=== PATIENT | female | born 1935 | race Caucasian/White ===

== ENCOUNTER → 2017-08-04 | Day surgery (SDC) | payer MEDICARE, OTHER ==
[~2017-08-04] MED LIST: ASPI81TA50 PO; DRON400T PO; GLUC100018 PO; IV NORMAL SALINE 1,000ML 1,000 ML IV SCH; IV RINGERS SOLUTION,LACTATED 1,000 ML IV SCH; LEVO25TA4 PO; LIDOCAINE 1% PF 2 ML VIAL. ID PRN; LIDOCAINE 2% 20 ML VIAL. ONE; METO25TA4 PO; MULT1TAB52 PO; ONDANSETRON PF 4 MG/2 ML VIAL. IV PRN; PROPOFOL 10,000 MCG/ML (20ML) VIAL IV ONE; PROPOFOL 20 ML IV ONE; RALO60TA PO
[2017-08-04 08:48] VITALS: BP 105/55
== END ==
LOC: SURG 07:05
PROVIDERS: ATTEND Internal Medicine Gastroenterology
DX: K29.70 Gastritis, unspecified, without bleeding (principal); K44.9 Diaphragmatic hernia without obstruction or gangrene; I10 Essential (primary) hypertension; E03.9 Hypothyroidism, unspecified; Z95.0 Presence of cardiac pacemaker
CPT/HCPCS: 43239; J2704; 43235; J2001; J7030

== ENCOUNTER → 2018-03-24 | Outpatient (CLI) | payer MEDICARE, OTHER ==
[2017-08-04 08:48] VITALS: BP 105/55
[~2018-03-24] MED LIST changes: -IV NORMAL SALINE 1,000ML 1,000 ML IV SCH; -IV RINGERS SOLUTION,LACTATED 1,000 ML IV SCH; -LIDOCAINE 1% PF 2 ML VIAL. ID PRN; -LIDOCAINE 2% 20 ML VIAL. ONE; -ONDANSETRON PF 4 MG/2 ML VIAL. IV PRN; -PROPOFOL 10,000 MCG/ML (20ML) VIAL IV ONE; -PROPOFOL 20 ML IV ONE
--- NOTE | 2018-03-24 11:49 | RAD ---
CT HEAD WITHOUT CONTRAST 03/24/2018 11:15 AM Indication: FELL EARLIER THIS WEEK. CONCUSSION WITHOUT LOSS OF CONSCIOUSNESS Comparison: CT head without contrast September 10, 2015 Procedure: Multidetector CT imaging of the head was performed without the administration of contrast. Findings: No evidence of acute intracranial hemorrhage is identified. No evidence of subacute territorial infarct is seen. Age appropriate senescent atrophic changes are seen. Encephalomalacia involving the left frontal lobe and left basal ganglia with resultant prominence of the anterior horn of left lateral ventricle is seen.Findings are consistent with the expected evolution of the previously noted hemorrhagic stroke. Basilar cisterns remain patent. No acute mass effect or midline shift is seen. No new abnormal extra-axial fluid collections are identified. No acute osseous changes are seen. IMPRESSION: 1.No evidence of acute intracranial abnormality 2. Chronic changes as described above. CT DOSING PQRS STATEMENT: One or more of the following individualized dose reduction techniques were utilized for this examination: 1. Automated exposure control 2. Adjustment of the mA and/or kV according to patient size 3. Use of iterative reconstruction technique Electronically signed by: Rick Gu MD (03/24/2018 11:46 AM) [id number]
== END | disposition home or self-care (01) ==
LOC: CT 11:05
PROVIDERS: ATTEND Family Medicine
DX: S06.0X0A Concussion without loss of consciousness, initial encounter (principal); G93.89 Other specified disorders of brain; X58.XXXA Exposure to other specified factors, initial encounter; Y93.89 Activity, other specified; Y92.89 Other specified places as the place of occurrence of the external cause; Y99.8 Other external cause status
CPT/HCPCS: 70450

== ENCOUNTER → 2019-08-14 | Outpatient (CLI) | payer MEDICARE, OTHER ==
[2018-04-10 10:32] VITALS: BP 130/68
[~2019-08-14] MED LIST changes: +MULT-445 PO; -MULT1TAB52 PO
--- NOTE | 2019-08-14 19:02 | RAD ---
CT CHEST WO CONTRAST Indication: Abnormal weight loss, fatigue, abnormal chest x-ray Technique: Noncontrast CT imaging was performed of the chest, multiplanar reconstruction images submitted. One or more of the following individualized dose reduction techniques were utilized for this examination: 1. Automated exposure control 2. Adjustment of the mA and/or kV according to patient size 3. Use of iterative reconstruction technique. Comparison: September 01, [address] Findings: There is a thick-walled cavitary mass lesion of the posterior aspect of the right lower lobe abutting the pleural surface about 4.8 cm transverse by 2.7 cm greater AP by 5.7 cm CC. There is right lower lobe nodule about 0.7 cm along the major fissure image 56 series 2. There is trace pleural fluid bilaterally greater on the left. There is mediastinal lymphadenopathy, largest precarinal node about 1.2 cm tract is dimension. Poorly evaluated without intravenous contrast, there is probably a degree of right hilar lymphadenopathy. There is dual lead left electronic cardiac device at atrial appendage clip. There is emphysema with upper zone predominance. There is nonspecific heterogeneity of the bilateral breasts greater on the left. There has been vertebroplasty at L2. IMPRESSION: 1. There is thick walled cavitary mass lesion of the posterior aspect of the right lower lobe. While infectious etiologies including tuberculosis are in the differential considerations, primary concern would be for cavitary malignancy until proven otherwise. There is lymphadenopathy. 2. There is some heterogeneity of the bilateral breasts greater on the left, better evaluated by mammography and ultrasound if needed. 3. There is emphysema. Electronically signed by: Shane Weldon MD (08/14/2019 6:59 PM) [facility]
[2019-08-14 19:43] LABS: HEMATOCRIT 36.5 % (36.0-47.0); HEMOGLOBIN 11.6 g/dL (12.0-15.5); MEAN CORPUSCULAR HEMOGLOBIN 28 pg (25-35); MEAN CORPUSCULAR HGB CONC 32 g/dL (31-37); MEAN CORPUSCULAR VOLUME 87 fL (79-100); PLATELET COUNT 256 x10^3/uL (140-400); RED CELL DISTRIBUTION WIDTH 13.6 % (11.5-14.5); WHITE BLOOD COUNT 6.5 x10^3/uL (4.0-11.0)
[2019-08-14 19:47] LABS: ALBUMIN 2.8 g/dL (3.4-5.0); ALBUMIN/GLOBULIN RATIO 0.6 (1.0-1.7); CALCIUM 8.5 mg/dL (8.5-10.1); CREATININE 1.4 mg/dL (0.6-1.0); GFR 35.7; POTASSIUM 3.8 mmol/L (3.5-5.1); TOTAL BILIRUBIN 0.3 mg/dL (0.2-1.0); TOTAL PROTEIN 7.4 g/dL (6.4-8.2)
[2019-08-14 20:33] LABS: % BANDS 1 % (0-9); % EOS 6 % (0-5); % LYMPHS 20 % (24-48); % MONOS 11 % (0-10); % SEGS 62 % (35-66)
[2019-08-14 20:34] LABS: PLT ESTIMATE ADEQUATE (ADEQUATE)
[2019-08-15 13:21] LABS: FREE T4 1.31 ng/dL (0.76-1.46); THYROID STIM HORMONE (TSH) 5.517 uIU/mL (0.358-3.740)
== END ==
LOC: CT 18:15
PROVIDERS: ATTEND Family Medicine
DX: T73.3XXA Exhaustion due to excessive exertion, initial encounter (principal); R63.4 Abnormal weight loss; I50.21 Acute systolic (congestive) heart failure; E03.9 Hypothyroidism, unspecified; J00 Acute nasopharyngitis [common cold]; N39.0 Urinary tract infection, site not specified; R06.9 Unspecified abnormalities of breathing; J43.9 Emphysema, unspecified; R59.0 Localized enlarged lymph nodes; R91.1 Solitary pulmonary nodule; X50.9XXA Other and unspecified overexertion or strenuous movements or postures, initial encounter; Y93.89 Activity, other specified; Y92.89 Other specified places as the place of occurrence of the external cause; Y99.8 Other external cause status
CPT/HCPCS: 36415; 71250; 80053; 82550; 84439; 84443; 84484; 85007; 85025

== ENCOUNTER → 2019-08-29 | Outpatient (CLI) | payer MEDICARE, OTHER ==
[2018-04-10 10:32] VITALS: BP 130/68
--- NOTE | 2019-08-29 17:13 | RAD ---
EXAM: BILATERAL DIGITAL 3D SCREENING MAMMOGRAPHY. HISTORY: Routine mammographic screening. TECHNIQUE: Bilateral digital 3D and tomographic images were obtained in CC and MLO projections. Computer-aided detection was applied. COMPARISON: None available. This is interpreted as a baseline study. COMPOSITION: C. The breasts are heterogeneously dense, which may obscure small masses. FINDINGS: A region of architectural distortion superolaterally on the left is concerning for malignancy. A small region of branching calcifications is noted deep to the nipple on the CC view. Questionable architectural distortion is suspected superolaterally on the right. See annotations. BI-RADS CATEGORY 0: Incomplete--Needs Additional Imaging Evaluation. RECOMMENDATION: 1. Magnification images of the region surrounding the left architectural distortion and subareolar region. 2. Ultrasound of the left architectural distortion and axilla. 3. Spot compression and ultrasound of the suggested region of architectural distortion superolaterally on the right. See annotations. Electronically signed by: Chandrakant Palacios MD (08/29/2019 5:10 PM) [id number]
== END | disposition home or self-care (01) ==
LOC: MAMMO 11:16
PROVIDERS: ATTEND Family Medicine
DX: Z12.31 Encounter for screening mammogram for malignant neoplasm of breast (principal)
CPT/HCPCS: 77063; 77067

== ENCOUNTER → 2019-09-13 | Outpatient (CLI) | payer MEDICARE, OTHER ==
[2018-04-10 10:32] VITALS: BP 130/68
--- NOTE | 2019-09-17 09:51 | RAD ---
DATE: 09/13/2019 2:10 PM EXAM: DIGITAL DIAGNOSTIC BILATERAL, BREAST BILATERAL HISTORY: Screening recall for bilateral architectural distortion. COMPARISON: 08/29/2019 bilateral screening mammogram TECHNIQUE: A full-field lateral view of the left breast was obtained. Spot compression and magnification views of the right breast were obtained. FINDINGS: Breast Density: HETERO The breast parenchyma Is heterogeneously dense, which could reduce sensitivity of mammography. Breast parenchyma level C In the left breast, the additional full-field lateral view show the presence of a dense, spiculated 1.7 cm mass at the approximate 12:00 position 5 cm from the nipple that correlates with the finding recalled from screening. On mammography alone, it is highly suggestive of malignancy and needs biopsy but was pursued for targeted ultrasound in further characterization. Additional mammographic views of the left breast were not acquired given the lower likelihood of significantly impacting future clinical management. Partially imaged left pacemaker is incidentally noted. Targeted ultrasound of the left breast confirm the presence of an antiparallel irregular hypoechoic shadowing 1.5 cm mass at the left 12:00 position 4 cm from the nipple that correlates with the mammographic finding recalled from screening and confirmed on same-day diagnostic mammogram. No left axillary adenopathy by ultrasound. Vague hypoechoic tissue at the left 4:00 position 4 cm from the nipple with edge artifact was incidentally noted as well, possibly reflecting a ridge of dense fibrous tissue. In the right breast, the questioned area of architectural distortion did not clearly persist with additional mammographic views but given the density of her breast tissue, it was pursued with targeted right breast ultrasound after additional mammographic magnification views were obtained. Targeted ultrasound of the right breast did not reveal suspicious sonographic finding in the upper outer quadrant but at the right 12:00 position 3 cm from the nipple, an irregular hypoechoic 9 mm mass was identified that is sonographically suspicious. No right axillary adenopathy on ultrasound. IMPRESSION: 1. Spiculated 1.7 cm mass in the superior left breast (12:00 position 5 cm from the nipple) is highly suggestive of malignancy. Ultrasound-guided biopsy is recommended. Given the density of her breast tissue, if malignancy is diagnosed, additional imaging with MRI if clinically appropriate may be considered if it would help with clinical staging and management. 2. Irregular hypoechoic 1.5 cm mass at the right 12:00 position 3 cm from the nipple is suspicious for malignancy. Ultrasound-guided biopsy is recommended. BI-RADS CATEGORY: 5 HIGHLY SUGGESTIVE MALIGNANCY RECOMMENDED FOLLOW-UP: BIO BIOPSY RECOMMENDED Bilateral ultrasound-guided core needle breast biopsy is recommended. Technologist relayed this recommendation to the patient prior to discharge from the imaging suite. PQRS compliance statement: Patient information was entered into a reminder system with a target due date for the next mammogram. Mammography is a sensitive method for finding small breast cancers, but it does not detect them all and is not a substitute for careful clinical examination. A negative mammogram does not negate a clinically suspicious finding and should not result in delay in biopsying a clinically suspicious abnormality. "Our facility is accredited by the [employer] Mammography Program." Discussed with Dr. Medina by telephone at 9:12 am on 09/17/19.
== END | disposition home or self-care (01) ==
LOC: MAMMO 13:52
PROVIDERS: ATTEND Family Medicine
DX: R92.8 Other abnormal and inconclusive findings on diagnostic imaging of breast (principal); N63.22 Unspecified lump in the left breast, upper inner quadrant
CPT/HCPCS: 76641; 77066

== ENCOUNTER → 2019-12-19 | Outpatient (CLI) | payer MEDICARE, OTHER ==
[2018-04-10 10:32] VITALS: BP 130/68
== END ==
LOC: LAB 15:42
PROVIDERS: ATTEND Internal Medicine Interventional Cardiology
DX: R79.89 Other specified abnormal findings of blood chemistry (principal)
CPT/HCPCS: 36415; 84484

== ENCOUNTER → 2021-01-22 | Outpatient (CLI) | payer MEDICARE, OTHER ==
[2018-04-10 10:32] VITALS: BP 130/68
[~2021-01-22] MED LIST changes: -DRON400T PO; +DRON400T6 PO
--- NOTE | 2021-01-22 12:50 | RAD ---
CT THORACIC SPINE WO History: Back pain Comparison: CT chest 08/14/2019. Technique: Noncontrast CT of the thoracic spine. Findings: There are 12 rib-bearing thoracic vertebral segments. The T12 ribs are hypoplastic. Tiny C7 cervical ribs. Mild levoconvex curvature of the upper thoracic spine. No spondylolisthesis. There is subtle co mpression deformity of the T8 vertebral body which is new from August 2019 comparison with approximatel y 15 percent height loss. Redemonstrated L1 vertebral body compression fracture with kyphoplasty bach ges and retropulsion of the superior posterior cortex. mild thoracic degenerative endplate changes an d osteophytes. No significant thoracic spinal canal or neuroforaminal stenosis. Narrowing of the spin al canal at L1 due to fracture or retropulsion is unchanged. Partially visualized right internal jugular central venous catheter with tip terminating at the cavoa trial junction. Left chest dual-chamber cardiac pacemaker. Emphysematous changes of the lungs. There has been evolution of a thick-walled cavitary lesion in the right lower lobe now with posterior segme nt consolidation and decreased thickness of the cavitation wall. Prior metastatic adenopathy is impro michael. Impression: 1. Compression fracture of the T8 vertebral body new from August 2019 with approximately 50 percent he ight loss. 2. Evolution of cavitary lesion in the right lower lobe with new consolidation/atelectasis with volu me loss in the posterior segment and interval decrease in wall thickness of the cavitary lesion as we ll as improvement of the mediastinal adenopathy. ------ Exposure: One or more of the following individualized dose reduction techniques were utilized for thi s examination: 1. Automated exposure control 2. Adjustment of the mA and/or kV according to patient size 3. Use of iterative reconstruction technique. Electronically signed by: Juan Mari MD (01/22/2021 12:48 PM) [facility]
== END ==
LOC: RAD 10:49
PROVIDERS: ATTEND Family Medicine
DX: M48.54XA Collapsed vertebra, not elsewhere classified, thoracic region, initial encounter for fracture (principal); M43.8X4 Other specified deforming dorsopathies, thoracic region; R91.1 Solitary pulmonary nodule; M51.24 Other intervertebral disc displacement, thoracic region; J43.9 Emphysema, unspecified; M47.814 Spondylosis without myelopathy or radiculopathy, thoracic region; M48.56XD Collapsed vertebra, not elsewhere classified, lumbar region, subsequent encounter for fracture with routine healing; M25.78 Osteophyte, vertebrae
CPT/HCPCS: 72128

== ENCOUNTER → 2021-02-05 | Outpatient (CLI) | payer MEDICARE, OTHER ==
[2018-04-10 10:32] VITALS: BP 130/68
--- NOTE | 2021-02-05 14:57 | RAD ---
EXAM: Nuclear bone scan. HISTORY: Back pain. Lung cancer. TECHNIQUE: Following the intravenous injection of 25 mCi of Tc 99m labeled methylene diphosphonate (M DP), whole body imaging was performed. COMPARISON: CT dated 01/22/2021. FINDINGS: There is focal increased tracer tracer activity within the bilateral aspects of the T8 vert ebral body, consistent with a subacute compression fracture demonstrated on the recent CT. There is d egenerative radiotracer activity involving the lumbar spine, knees, shoulders and wrists. There is a small focus of increased radiotracer activity within the left mid cervical spine which is likely due to degenerative facet arthropathy.. IMPRESSION: 1. Focal increased radiotracer activity within the bilateral aspects of T8, consistent with a subacut e compression fracture demonstrated on the recent CT. 2. Degenerative activity involving the lumbar spine, knees, shoulders and wrists. 3. Suspected focus of degenerative radiotracer activity involving the left facet joints at the mid ce rvical levels. Electronically signed by: Kadie Daly MD (02/05/2021 2:54 PM) [id number]
== END ==
LOC: NM 10:28
PROVIDERS: ATTEND Family Medicine
DX: M48.54XA Collapsed vertebra, not elsewhere classified, thoracic region, initial encounter for fracture (principal); M48.56XA Collapsed vertebra, not elsewhere classified, lumbar region, initial encounter for fracture; M48.50XG Collapsed vertebra, not elsewhere classified, site unspecified, subsequent encounter for fracture with delayed healing; W01.0XXA Fall on same level from slipping, tripping and stumbling without subsequent striking against object, initial encounter; Z85.118 Personal history of other malignant neoplasm of bronchus and lung
CPT/HCPCS: 78306; A9503

== ENCOUNTER → 2021-02-09 | Outpatient (CLI) | payer MEDICARE, OTHER ==
[2018-04-10 10:32] VITALS: BP 130/68
--- NOTE | 2021-02-10 14:20 | RAD ---
CT THORACIC SPINE WO History:Reason: BACK PAIN RULE OUT FX / Spl. Instructions: / History: Technique: Noncontrast CT was performed of the thoracic spine. Multiplanar reconstructions were perfo rmed. Exposure: One or more of the following individualized dose reduction techniques were utilized for thi s examination: 1. Automated exposure control 2. Adjustment of the mA and/or kV according to patient size 3. Use of iterative reconstruction technique. Comparison: January 22, 2021 Findings: Thoracic spine: Unchanged consolidations and atelectasis within the right lung right lower lobe posterior cavitary le brandy. Small loculated right pleural effusion, unchanged. T8 compression fractures status post kyphoplasty. Overall height loss is increased compared to prior approximately 50 percent. Chronic L1 compression fractures status post kyphoplasty. No new compressio n fracture. Mild rightward curvature of the thoracic spine. Impression: 1. T8 compression fracture status post kyphoplasty. Interval height loss compared to prior. 2. Chronic L1 compression fracture status post kyphoplasty. 3. Unchanged right lung findings with consolidations and atelectasis and cavitary lesion. Electronically signed by: Deandre Darnell DO (02/10/2021 2:18 PM) [facility]
== END ==
LOC: CT 13:20
PROVIDERS: ATTEND Surgery
DX: J90 Pleural effusion, not elsewhere classified (principal); J98.11 Atelectasis; M43.8X4 Other specified deforming dorsopathies, thoracic region; Z98.890 Other specified postprocedural states
CPT/HCPCS: 72128

== ENCOUNTER 2021-03-12 04:57 | Emergency (ER) | payer MEDICARE, OTHER ==
[~2021-03-12] VITALS: Ht 175.3 cm; Wt 59.0 kg
[2021-03-12] MEDS ORDERED: IOHEXOL 300 MG/ML 75 ML VIAL. IV ONE (05:30)
[2021-03-12] MEDS ORDERED: IV RINGERS SOLUTION,LACTATED 1,000 ML IV ONE (05:30)
[2021-03-12] MEDS ORDERED: CONTRAST GIVEN. MC PRN (05:30)
--- NOTE | 2021-03-12 05:31 | PHYS DOC ---
Past History Past Medical History: CVA, Hypothyroid (CATIA COOL MD) Past Surgical History: No Surgical History (CATIA COOL MD) Alcohol Use: None Drug Use: None (CATIA COOL MD) Adult General Chief Complaint Chief Complaint: CONSTIPATION HPI HPI Patient is an 85-year-old female with a past medical history significant for bradycardia arrhythmia with pacemaker placed who presents to the emergency department with a chief complaint. States she had not had a bowel movement in 4 days. States he is got generalized abdominal pain and distention 6 out of 10, dull and achy in nature radiation. Denies any recent travel, traumas, illnesses, fevers, chest pain, shortness of breath nausea diarrhea, dysuria, hematuria or blood in the stool. Denies any numbness/weakness/tingling. States she has been eating and drinking normally for her. States she did have a fractured lumbar vertebra about 4 5 weeks ago and had injection bone cement to fix it. States that she also went and saw the pain management clinic at the request of her primary care physician Dr. Avalos who started her on hydrocodone. States that she ran out of those about 2 days ago. (CATIA COOL MD) Review of Systems Review of Systems Review of systems otherwise unremarkable except noted in HPI (CATIA COOL MD) Allergies Allergies Allergies Coded Allergies Type Severity Reaction Last Updated Verified No Known Drug Allergies 08/04/17 No (CATIA COOL MD) Physical Exam Physical Exam Constitutional: Well developed, well nourished, no acute distress, non-toxic appearance. [] HENT: Normocephalic, atraumatic, oropharynx dry, Eyes: conjunctiva normal, no discharge. [] Neck: Normal range of motion, no tenderness, supple, no stridor. [] Cardiovascular:Heart rate regular rhythm, no murmur, paced [] Lungs & Thorax: Bilateral breath sounds clear to auscultation [] Abdomen: Bowel sounds diminished, soft, generalized tenderness, some guarding and rebound no masses, no pulsatile masses. [] Skin: Warm, dry, no erythema, no rash. [] Back: no CVA tenderness. [] Extremities: No tenderness, no cyanosis, no clubbing, ROM intact, no edema. [] Neurologic: Alert and oriented X 3, normal motor function, normal sensory function, no focal deficits noted. [] Psychologic: Affect normal, judgement normal, mood normal. [] (CATIA COOL MD) EKG EKG [] (CATIA COOL MD) Radiology/Procedures Radiology/Procedures [] (CATIA COOL MD) Impressions: CT OF THE ABDOMEN AND PELVIS WITH IV CONTRAST. History: Reason: ab pain, distension, no BM 5 days, Comparison:None. Procedure: Contiguous axial images of the abdomen and pelvis were performed after the administration of 60 cc of Optiray 300 IV contrast. Oral contrast: No. Findings: There is patchy opacity in the right lung base medially. There is multiple dilated loops of proximal and mid small bowel and more collapsed distal small bowel with a transition zone seen anteriorly in left pelvis image #53. The appendix is not well seen. The gallbladder appears normal. Liver: Unremarkable Spleen: Unremarkable Pancreas: Unremarkable Adrenal Glands: Unremarkable Kidneys: Bilateral cysts There is no mass or lymphadenopathy. There is no free air. There is no free fluid. The urinary bladder contains a small amount of air but otherwise appears normal. There is an old L1 vertebral body compression fracture with previous vertebroplasty. Impression: 1. Right basilar infiltrate could be discoid atelectasis or early pneumonia. 2. Air in the urinary bladder is likely from instrumentation. There is also small focus of air in the endometrial uterus which could be iatrogenic. 3. Dilated small bowel with a transition zone suggesting partial small bowel obstruction. End Impression PQRS Compliance Statement: One or more of the following individualized dose reduction techniques were util ized for this examination: 1. Automated exposure control 2. Adjustment of the mA and/or kV according to patient size 3. Use of iterative reconstruction technique Electronically signed by: Johnny Dsouza III, MD (03/12/2021 7:15 AM) [facility] DICTATED AND SIGNED BY: JOHNNY DSOUZA III, MD DATE: 03/12/21 0707 CC: JOE CASANOVA DO; CATIA COOL MD; VINICIO NOGUEIRA MD ~MTH0 0 EXAM: CHEST ONE VIEW. HISTORY: Lung cancer, cardiac workup. COMPARISON: 08/09/2019. FINDINGS: A frontal view of the chest is obtained. A right-sided port catheter has its tip in the superior cavoatrial junction. A left-sided pacemaker has its leads in the right atrium and right ventricle. A cavitary lesion within the superior segment of the right lower lobe measures approximately 5.5 cm and is better seen on CT. Hyperinflation is consistent with chronic obstructive pulmonary disease. There is mild right volume loss. There is no pneumothorax or pleural effusion. The heart is not enlarged. There are a therosclerotic calcifications of the aorta. An atrial appendage closure clip and mid thoracic vertebroplasty changes are noted. IMPRESSION: 1. Refer to prior CT for description of a right-sided cavitary lesion. Ongoing follow-up is recommended. 2. Chronic obstructive pulmonary disease. Electronically signed by: Chandrakant Palacios MD (03/12/2021 6:49 AM) [id number] DICTATED AND SIGNED BY: MARY PALACIOS MD DATE: 03/12/21 0646 CC: JOE CASANOVA DO; CATIA COOL MD; VINICIO NOGUEIRA MD ~MTH0 0 CT ABDOMEN+PELVIS WO History: Pain improved, question partial small bowel obstruction resolution. Comparison: CT abdomen and pelvis 03/12/2021. Technique: Noncontrast CT of the abdomen and pelvis. Findings: Posterior right lower lobe bleb/pulmonary cyst with adjacent mild bronchiectasis. Dual chamber pacemaker leads. Atrial appendage clip seen on patient services technician view only. The liver is unremarkable. Layering density within the gallbladder, likely vicarious contrast excretion. The pancreas, spleen and adrenal glands are unremarkable. Mild renal cortical atrophy. Bilateral excretory nephrograms ureters are unremarkable. Bilateral renal cysts. The bladder is within normal limits. Uterus and adnexa are unremarkable. There are scattered foci of anterior dependent free air in the abdomen and pelvis. Trace pelvic free fluid. Mild mesenteric inflammation. The stomach is u nremarkable. Small bowel loops appear mildly distended, perhaps less conspicuous than comparison, possible transition point in the right upper pelvis (axial 78). There is a swirling appearance of the lower small bowel mesentery concerning for internal hernia or volvulus. Fluid within the ascending colon. No colonic wall thickening. Mild descending and sigmoid diverticulosis. Unopacified vasculature demonstrates atherosclerotic calcification. No adenopathy. Decreased osseous mineralization in the spine and pelvis. Multilevel degenerative changes. Kyphoplasty changes at L1. Impression: 1. Intraperitoneal free air concerning for perforation of small bowel. Swirled appearance of the mesenteric root and mildly dilated lower abdominal small bowel loops concerning for small bowel volvulus or internal hernia. Findings discussed with JOE CASANOVA DO at 03/12/2021 12:45 PM. FOR INTERNAL CODING PURPOSES RESULT CODE: (C) ------ Exposure: One or more of the following individualized dose reduction techniques were utilized for this examination: 1. Automated exposure control 2. Adjustment of the mA and/or kV according to patient size 3. Use of iterative reconstruction technique. Electronically signed by: Juan Harper MD (03/12/2021 12:47 PM) [id number] DICTATED AND SIGNED BY: JUAN HARPER MD DATE: 03/12/21 1232 CC: JOE CASANOVA DO; VINICIO NOGUEIRA MD ~MTH0 0 (JOE CASANOVA DO) Heart Score C/O Chest Pain: No Risk Factors: Risk Factors: DM, Current or recent (<one month) smoker, HTN, HLP, family history of CAD, obesity. Risk Scores: Risk Factors: DM, Current or recent (<one month) smoker, HTN, HLP, family h istory of CAD, obesity. (CATIA COOL MD) Course & Med Decision Making Course & Med Decision Making Patient is an 85-year-old female who presents with a chief complaint of abdominal pain and distention with no bowel movement for the last 4 to 5 days Vital signs not concerning. Physical exam noted above. Patient placed on the monitor with IV access established. Started IV fluid. Made NPO. Given pain medicine. Laboratory analysis and CT pending. Patient handed off to day team for continued evaluation, treatment and disposition. [] (CATIA COOL MD) Course & Med Decision Making The patient's chest x-ray shows a right basilar lesion. CT of the pelvis shows a partial small bowel obstruction as well as possible early pneumonia in the base of the right lung. See official reads for more details. Patient has a slight elevated white count with a left shift. C-reactive protein is high. Patient's urinalysis is suggestive of urinary tract infection. I will treat the patient with Rocephin and azithromycin. We will transfer the patient to a facility with surgical services for her partial small bowel obstruction. Patient preference is [facility]. There are no beds currently at [facility]. 1 patient is in the ED, she had a large bowel movement. This is encouraging. We will continue to observe her while we wait for bed availability. Unfortunately, the patient's repeat CT scan showed free air in the abdomen unlikely perforation. Continue to have obstruction. I spoke with the general surgeon, Dr. Cosme and he has recommended the patient be transferred. I spoke with Dr. Eason hospitalist who is accepted the patient for transfer. She will go by ambulance. (JOE CASANOVA DO) Dragon Disclaimer Dragon Disclaimer This electronic medical record was generated, in whole or in part, using a voice recognition dictation system. (CATIA COOL MD) Departure Departure: Impression: Primary Impression: Partial small bowel obstruction Additional Impressions: Abdominal pain Abdominal distention Constipation Fatigue UTI (urinary tract infection) Pneumonia Disposition: 02 SHORT TERM HOSPITAL Condition: STABLE Referrals: VINICIO NOGUEIRA MD (PCP) Problem Qualifiers Additional Impressions: Pneumonia Pneumonia type: due to unspecified organism Laterality: right Lung location: lower lobe of lung Qualified Codes: J18.9 - Pneumonia, unspecified organism CATIA COOL MD Mar 12, 2021 05:30 JOE CASANOVA DO Mar 12, 2021 07:23
[2021-03-12 06:11] LABS: BASO % 0 % (0-3); EOS # 0.1 x10^3/uL (0.0-0.7); EOS % 1 % (0-3); HEMOGLOBIN 13.5 g/dL (12.0-15.5); LYMPH # 1.2 x10^3/uL (1.0-4.8); LYMPH % 11 % (24-48); MEAN CORPUSCULAR HEMOGLOBIN 30 pg (25-35); MEAN CORPUSCULAR HGB CONC 32 g/dL (31-37); MEAN CORPUSCULAR VOLUME 93 fL (79-100); MONO # 0.2 x10^3/uL (0.0-1.1); MONO % 2 % (0-9); NEUT % 86 % (31-73); PLATELET COUNT 150 x10^3/uL (140-400); RED BLOOD COUNT 4.54 x10^6/uL (3.50-5.40); RED CELL DISTRIBUTION WIDTH 15.4 % (11.5-14.5); WHITE BLOOD COUNT 11.6 x10^3/uL (4.0-11.0)
--- NOTE | 2021-03-12 06:11 | EKG ---
[address] [address] Test Date: 2021-03-12 Test Time: 05:57:36 Pat Name: HARVEY KENNEDY Department: Room: Gender: F Sales And Service Technician: : [id number] Requested By: CATIA COOL Order Number: [id number] Reading MD: Balaji Flores Measurements Intervals [place] Rate: 81 P: -2 IN: 170 QRS: -48 QRSD: 102 T: 77 QT: 368 QTc: 428 Interpretive Statements SINUS RHYTHM VENTRICULAR PREMATURE COMPLEX(ES) NON SPECIFIC ST-T WAVE CHANGES Electronically Signed On 03-12-2021 13:35:28 TECHNOLOGIST DEVELOPMENT by Balaji Flores
[2021-03-12 06:17] LABS: CALCIUM 8.3 mg/dL (8.5-10.1); CREATININE 1.2 mg/dL (0.6-1.0); GFR 42.5; POTASSIUM 4.4 mmol/L (3.5-5.1)
[2021-03-12 06:21] LABS: BACTERIA,URINE MANY /HPF (0-FEW); BILIRUBIN,URINE NEG (NEG); CLARITY,URINE CLOUDY; COLOR,URINE YELLOW; GLUCOSE,URINE NEG (NEG); NITRITE,URINE NEG (NEG); UROBILINOGEN,URINE 0.2 mg/dL (0.2 mg/dL)
[2021-03-12 06:23] LABS: ALBUMIN 2.7 g/dL (3.4-5.0); ALBUMIN/GLOBULIN RATIO 0.8 (1.0-1.7); C REACTIVE PROTEIN 160.5 mg/L (0-3.3); TOTAL BILIRUBIN 0.5 mg/dL (0.2-1.0); TOTAL PROTEIN 6.1 g/dL (6.4-8.2)
[2021-03-12 06:32] LABS: INFLUENZA A PATIENT NEGATIVE (NEGATIVE); INFLUENZA B PATIENT NEGATIVE (NEGATIVE)
--- NOTE | 2021-03-12 06:51 | RAD ---
EXAM: CHEST ONE VIEW. HISTORY: Lung cancer, cardiac workup. COMPARISON: 08/09/2019. FINDINGS: A frontal view of the chest is obtained. A right-sided port catheter has its tip in the sup erior cavoatrial junction. A left-sided pacemaker has its leads in the right atrium and right ventric le. A cavitary lesion within the superior segment of the right lower lobe measures approximately 5.5 cm a nd is better seen on CT. Hyperinflation is consistent with chronic obstructive pulmonary disease. The re is mild right volume loss. There is no pneumothorax or pleural effusion. The heart is not enlarged . There are atherosclerotic calcifications of the aorta. An atrial appendage closure clip and mid tho racic vertebroplasty changes are noted. IMPRESSION: 1. Refer to prior CT for description of a right-sided cavitary lesion. Ongoing follow-up is recommend ed. 2. Chronic obstructive pulmonary disease. Electronically signed by: Chandrakant Palacios MD (03/12/2021 6:49 AM) [id number]
--- NOTE | 2021-03-12 07:17 | RAD ---
CT OF THE ABDOMEN AND PELVIS WITH IV CONTRAST. History: Reason: ab pain, distension, no BM 5 days, Comparison:None. Procedure: Contiguous axial images of the abdomen and pelvis were performed after the administration of 60 cc o f Optiray 300 IV contrast. Oral contrast: No. Findings: There is patchy opacity in the right lung base medially. There is multiple dilated loops of proximal and mid small bowel and more collapsed distal small bowel with a transition zone seen anteriorly in l eft pelvis image #53. The appendix is not well seen. The gallbladder appears normal. Liver: Unremarkable Spleen: Unremarkable Pancreas: Unremarkable Adrenal Glands: Unremarkable Kidneys: Bilateral cysts There is no mass or lymphadenopathy. There is no free air. There is no free fluid. The urinary bladder contains a small amount of air but otherwise appears normal. There is an old L1 vertebral body compression fracture with previous vertebroplasty. Impression: 1. Right basilar infiltrate could be discoid atelectasis or early pneumonia. 2. Air in the urinary bladder is likely from instrumentation. There is also small focus of air in the endometrial uterus which could be iatrogenic. 3. Dilated small bowel with a transition zone suggesting partial small bowel obstruction. End Impression PQRS Compliance Statement: One or more of the following individualized dose reduction techniques were utilized for this examinat ion: 1. Automated exposure control 2. Adjustment of the mA and/or kV according to patient size 3. Use of iterative reconstruction technique Electronically signed by: Sadiq Hopper III, MD (03/12/2021 7:15 AM) [facility]
[2021-03-12] MEDS ORDERED: AZITHROMYCIN 250 MG TABLET. PO ONE (07:45)
[2021-03-12] MEDS ORDERED: IV NORMAL SALINE 50ML 50 ML ONE (08:09)
[2021-03-12] MEDS ORDERED: cefTRIAXone SODIUM 1 GM VIAL ONE (08:09)
[2021-03-12] MEDS ORDERED: AZITHROMYCIN 250 MG TABLET. ONE (08:14)
[2021-03-12] MEDS ORDERED: AZITHROMYCIN 500 MG VIAL. IV ONE (08:15)
[2021-03-12] MEDS ORDERED: IV NORMAL SALINE 250ML 250 ML ONE (08:15)
[2021-03-12] MEDS ORDERED: AZITHROMYCIN 500 MG in IV NORMAL SALINE 250ML 250 ML IV ONE (08:15)
--- NOTE | 2021-03-12 12:50 | RAD ---
CT ABDOMEN+PELVIS WO History: Pain improved, question partial small bowel obstruction resolution. Comparison: CT abdomen and pelvis 03/12/2021. Technique: Noncontrast CT of the abdomen and pelvis. Findings: Posterior right lower lobe bleb/pulmonary cyst with adjacent mild bronchiectasis. Dual chamber pacema ker leads. Atrial appendage clip seen on postdoctoral research associate view only. The liver is unremarkable. Layering density within the gallbladder, likely vicarious contrast excreti on. The pancreas, spleen and adrenal glands are unremarkable. Mild renal cortical atrophy. Bilateral excretory nephrograms ureters are unremarkable. Bilateral renal cysts. The bladder is within normal l imits. Uterus and adnexa are unremarkable. There are scattered foci of anterior dependent free air in the abdomen and pelvis. Trace pelvic free fluid. Mild mesenteric inflammation. The stomach is unremarkable. Small bowel loops appear mildly dis tended, perhaps less conspicuous than comparison, possible transition point in the right upper pelvis (axial 78). There is a swirling appearance of the lower small bowel mesentery concerning for interna l hernia or volvulus. Fluid within the ascending colon. No colonic wall thickening. Mild descending a nd sigmoid diverticulosis. Unopacified vasculature demonstrates atherosclerotic calcification. No adenopathy. Decreased osseous mineralization in the spine and pelvis. Multilevel degenerative changes. Kyphoplasty changes at L1. Impression: 1. Intraperitoneal free air concerning for perforation of small bowel. Swirled appearance of the mes enteric root and mildly dilated lower abdominal small bowel loops concerning for small bowel volvulus or internal hernia. Findings discussed with JOE CASANOVA DO at 03/12/2021 12:45 PM. FOR INTERNAL CODING PURPOSES RESULT CODE: (C) ------ Exposure: One or more of the following individualized dose reduction techniques were utilized for thi s examination: 1. Automated exposure control 2. Adjustment of the mA and/or kV according to patient size 3. Use of iterative reconstruction technique. Electronically signed by: Juan Mari MD (03/12/2021 12:47 PM) [id number]
[2021-03-12 13:36] VITALS: BP 119/65
== END 2021-03-12 14:45 | disposition short-term general hospital (02) ==
LOC: ER 04:57
DX: K56.600 Partial intestinal obstruction, unspecified as to cause (principal); K59.00 Constipation, unspecified; N39.0 Urinary tract infection, site not specified; J18.9 Pneumonia, unspecified organism; R14.0 Abdominal distension (gaseous); E03.9 Hypothyroidism, unspecified; Z20.822 Contact with and (suspected) exposure to COVID-19; Z86.73 Personal history of transient ischemic attack (TIA), and cerebral infarction without residual deficits
CPT/HCPCS: 71045; 74176; 74177; 80053; 81001; 83605; 83690; 84484; 85025; 86140; 87077; 87086; 87186; 87428; 93005; 96361; 96365; 96368; 96375; 99285; C9803; J0456; J0696; J3010; J7050; J7120; Q9967; U0003